=== PATIENT | male | born 1985 | race Caucasian/White ===

== ENCOUNTER 2017-05-31 15:32 | Emergency (ER) | payer SELFPAY ==
[2017-05-31 15:41] VITALS: BP 155/81
--- NOTE | 2017-05-31 18:55 | EKG REPORT ---
SEVERITY:- ABNORMAL ECG - SINUS RHYTHM LEFT POSTERIOR FASCICULAR BLOCK BORDERLINE INFERIOR Q WAVES : Confirmed by: Isreal Bell MD 31-May-2017 18:54:25
== END 2017-05-31 16:55 | disposition left against medical advice (07) ==
LOC: ER 15:32
DX: Z53.21 Procedure and treatment not carried out due to patient leaving prior to being seen by health care provider (principal)
CPT/HCPCS: 93005; 93010

== ENCOUNTER 2017-06-07 16:19 | Emergency (ER) | payer OTHER ==
[2017-06-07 16:31] VITALS: BP 150/81
[2017-06-07] MEDS ORDERED: KETOROLAC TROMETHAMINE INJ/PF 30 MG/1 ML SDV IV ONE (16:57)
[2017-06-07] MEDS ORDERED: CLINDAMYCIN 600 MG/D5W RTU 600 MG/50 ML RTUPB IV ONE (16:57)
[2017-06-07] MEDS ORDERED: HYDROMORPHONE HCL INJ/PF 2 MG/ML AMPULE IV ONE (16:57)
--- NOTE | 2017-06-07 17:00 | ER Document Report ---
ED Medical Screen (RME) - General Chief Complaint: Finger Injury Stated Complaint: RT FINGER LACERATION Time Seen by Provider: 06/07/17 16:57 Notes: The patient is a 32-year-old male who presents with swelling of his right 2nd PIP joint after he cut it with a knife 2 weeks ago. He was using duct tape and bacitracin since the incident. Unknown tetanus status. Now noticing pus coming from the joint and he cannot bend his finger. PE: Swelling and purulent drainage from right 2nd PIP joint from dorsal side. No redness or tenderness over the flexor aspect of the second finger. I have greeted and performed a rapid initial assessment of this patient. A comprehensive ED assessment and evaluation of the patient, analysis of test results and completion of the medical decision making process will be conducted by additional ED providers. TRAVEL OUTSIDE OF THE [place] IN LAST 30 DAYS: No - Related Data Allergies/Adverse Reactions: No Known Allergies Allergy (Verified 06/07/17 16:21) Past Medical History Pulmonary Medical History: Reports: Hx Asthma - Immunizations Hx Diphtheria, Pertussis, Tetanus Vaccination: Yes Physical Exam - Vital signs Vitals: Temp Pulse Resp BP Pulse Ox 99.0 F 91 18 150/81 H 99 06/07/17 16:29 06/07/17 16:29 06/07/17 16:29 06/07/17 16:29 06/07/17 16:29 Course - Vital Signs Vital signs: Temp Pulse Resp BP Pulse Ox 99.0 F 91 18 150/81 H 99 06/07/17 16:29 06/07/17 16:29 06/07/17 16:29 06/07/17 16:29 06/07/17 16:29
--- NOTE | 2017-06-07 18:03 | ER Document Report ---
ED Hand/Wrist Injury - General Chief Complaint: Finger Injury Stated Complaint: RT FINGER LACERATION Time Seen by Provider: 06/07/17 16:57 Mode of Arrival: Ambulatory Information source: Patient TRAVEL OUTSIDE OF THE [place] IN LAST 30 DAYS: No - HPI Patient complains to provider of: right index finger infection Notes: Patient is here with complaints of right index finger redness, swelling, pain. 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 He states that he accidentally lacerated his PIP of the right index finger about 2 weeks ago. States that he wrapped some black electrical tape around it and went about his business. States that yesterday the finger started to become swollen and painful and today the entire index finger is swollen and painful and he now has some redness and swelling extending up the dorsum of his hand. He denies any nausea, vomiting, diarrhea. He denies fever. He denies any numbness or tingling. He does have limited range of motion of the finger. No chest pain or shortness of breath. He denies any other complaints at this time. - Related Data Allergies/Adverse Reactions: No Known Allergies Allergy (Verified 06/07/17 16:21) Home Medications: no home meds. Past Medical History - Social History Smoking Status: Current Every Day Smoker Chew tobacco use (# tins/day): No Frequency of alcohol use: Rare Drug Abuse: None Family History: Reviewed & Not Pertinent Patient has suicidal ideation: No Patient has homicidal ideation: No Pulmonary Medical History: Reports: Hx Asthma Renal/ Medical History: Denies: Hx Peritoneal Dialysis - Immunizations Hx Diphtheria, Pertussis, Tetanus Vaccination: Yes Review of Systems - Review of Systems -: Yes All other systems reviewed and negative Physical Exam - Vital signs Vitals: Temp Pulse Resp BP Pulse Ox 99.0 F 91 18 150/81 H 99 06/07/17 16:29 06/07/17 16:29 06/07/17 16:29 06/07/17 16:29 06/07/17 16:29 - Notes Notes: GENERAL: alert, cooperative, nontoxic, no distress. HEAD: normocephalic, atraumatic EYES: conjunctiva pink without discharge, no external redness or swelling. EARS: no external swelling, no external redness NOSE: atraumatic, no external swelling MOUTH/THROAT: mucous membranes moist and pink, posterior pharynx without erythema, swelling, exudate. No trismus or drooling. NECK: soft, supple, full range of motion, no meningismus. CHEST: no distress, lungs clear and equal throughout. No wheezing, rales, rhonchi. CARDIAC: regular rate and rhythm, no murmur, normal capillary refill, normal pulses. No peripheral edema noted. ABDOMEN: Soft, nontender. BACK: full range of motion, no CVA tenderness. EXTREMITIES: Old laceration to the dorsal aspect of the right PIP joint. There is a small amount of drainage noted from this old site. Patient is now noted to have swelling, redness, tenderness to the right index finger and extending up the dorsum of the right hand. There is no redness past the wrist. He has normal cap refill and sensation distally. NEURO: alert and oriented x 3, no focal deficits, full range of motion of all extremities. PYSCH: appropriate mood, affect. Patient is cooperative. SKIN: pink, warm, dry, no rash. Course - Re-evaluation Re-evalutation: 06/07/17 18:01 Patient is here with complaints of laceration to the right index finger at the PIP joint on the dorsal aspect that happened 2 weeks ago. H put electrical tape around it and is not evaluated for this laceration. Yesterday developed some pain and redness as well as some swelling to this area. Today the redness swelling and pain has worsened and he now has some redness and swelling extending to the dorsal aspect of the hand. Patient has some drainage coming from the old laceration site. He is afebrile. The remainder of his vital signs are stable at this time. At this point with blood cultures as well as lab work are currently pending. X-ray of the right hand is also pending at this time. I have discussed the case with Dr. Benz who is the on-call orthopedist [facility]. He states that the patient can be discharged home on oral antibiotics and be seen in the office tomorrow morning for reevaluation. Patient will be given a dose of clindamycin IV in the emergency department. Will be discharged home on Bactrim according to Dr. Benz's preference. He will be instructed to soak his finger in warm soapy water. Follow-up with orthopedics tomorrow. Follow-up sooner for worsening pain, fever, redness or for any further concerns. Differentials would include abscess, cellulitis, tenosynovitis. 06/07/17 20:38 Patient is nontoxic appearing with stable vitals. Is here with complaints of right finger swelling and pain. He lacerated his finger 2 weeks ago and now has some redness and swelling to the finger. He states that he was able to express a large amount of purulent material from the PIP last evening at his house when he stuck something sharp into it. He is now noted to have some redness and swelling to the right index finger that extends up the dorsum of the hand. It does not go past the wrist. He is afebrile. He is nontoxic appearing his white count is minimally elevated at 11-1/2. CRP is slightly elevated at 25. ESR is normal. X-ray shows no acute abnormality. Discussed case with Dr. Benz, he recommends opening the area and sending the patient home on antibiotics and having him follow-up in the office tomorrow morning. I was able to open the old laceration site and was able to express a small amount of purulent material. Patient was given clindamycin in ED. He will be discharged home on Bactrim per Dr. Benz's request. I will give him a small supply of pain medication. We instructed to soak his finger in warm soapy water. Follow-up tomorrow morning with Dr. Benz. Follow-up sooner for worsening pain, fever, redness, numbness, tingling, weakness, any further concerns. The patient is noted to have elevated blood pressure during today's emergency department visit. The patient was informed of this finding. The patient was instructed that this may be related to pre-hypertension and requires further evaluation with a primary care provider. The patient has no hypertensive symptoms at this time. The patient's emergency department workup and current diagnosis were explained to the patient and or family. Follow-up instructions were provided. Medications if prescribed were discussed. Instructions for when to return to the emergency department including specific worrisome symptoms were discussed with the patient and/or family. - Vital Signs Vital signs: Temp Pulse Resp BP Pulse Ox 99.0 F 91 18 150/81 H 99 06/07/17 16:29 06/07/17 16:29 06/07/17 16:29 06/07/17 16:29 06/07/17 16:29 - Laboratory Result Diagrams: 06/07/17 17:47 06/07/17 17:47 Laboratory results interpreted by me: 06/07/17 06/07/17 17:47 17:47 WBC 11.5 H Absolute Neutrophils 8.9 H Glucose 124 H C-Reactive Protein 26.5 H - Diagnostic Test Radiology reviewed: Image reviewed, Reports reviewed - Soft tissue swelling, no acute abnormality of the bone no foreign body. Procedures - Incision and Drainage right index finger Type: Simple Anesthetic type: 1% Lidocaine I&D procedure: Shurclens applied, Sterile dressing applied Incision Method: Incision made with needle Amount/type of drainage: Small amount of purulent drainage Notes: 06/07/17 20:40 Old laceration site was opened up using forceps. Wound was probed. Discharge - Discharge Clinical Impression: Abscess of right index finger Cellulitis Qualifiers: Site of cellulitis: extremity Site of cellulitis of extremity: finger Laterality: right Qualified Code(s): L03.011 - Cellulitis of right finger Condition: Stable Disposition: HOME, SELF-CARE Instructions: Abscess ([facility]), Oral Narcotic Medication ([facility]), Post Incision and Drainage, Trimethoprim-Sulfa ([facility]) Additional Instructions: Take medication as prescribed. Soak finger in warm soapy water. Call Dr. Benz's office first thing in the morning to schedule a follow-up appointment with Dr. Benz tomorrow. Follow-up sooner for worsening pain, fever, numbness , tingling, weakness, any further concerns. Your blood pressure was elevated during today's visit. Have this rechecked with your doctor. The medication you were prescribed today may cause drowsiness. Do not drive or operate heavy machinery while taking this medication. Prescriptions: Hydrocodone/Acetaminophen [[place] 5-325 mg Tablet] 2 tab PO Q6H PRN #10 tab PRN Reason: Sulfamethoxazole/Trimethoprim [Bactrim Ds Tablet] 1 each PO BID #20 tablet Forms: Elevated Blood Pressure, Smoking Cessation Education, Return to Work Referrals: MIROSLAVA BENZ MD [ACTIVE STAFF] - Follow up as needed
[2017-06-07 18:07] LABS: ABSOLUTE EOSINOPHILS # (AUTO) 0.1 10^3/uL (0.0-0.6); ABSOLUTE LYMPHOCYTES (AUTO) 1.5 10^3/uL (0.5-4.7); ABSOLUTE NEUT (AUTO) 8.9 10^3/uL (1.7-8.2); BASOPHILS % (AUTO) 0.3 % (0-2); HEMATOCRIT 42.8 % (37.9-51.0); HEMOGLOBIN 14.8 g/dL (13.5-17.0); LYMPHOCYTES % (AUTO) 13.1 % (13-45); MEAN CORPUSCULAR HGB CONC 34.5 g/dL (32.0-36.0); MEAN CORPUSCULAR VOLUME 90 fl (80-97); MONOCYTES % (AUTO) 8.5 % (3-13); PLATELET COUNT 219 10^3/uL (150-450); RED BLOOD COUNT 4.76 10^6/uL (4.35-5.55); RED CELL DISTRIBUTION WIDTH 13.9 % (11.5-14.0); SEGMENTED NEUTROPHILS % (AUTO) 77.1 % (42-78); TOTAL CELLS COUNTED % (AUTO) 100 %; WHITE BLOOD COUNT 11.5 10^3/uL (4.0-10.5)
--- NOTE | 2017-06-07 18:12 | RADIOLOGY REPORT (SQ) ---
EXAM DESCRIPTION: FINGER RIGHT COMPLETED DATE/TIME: 06/07/2017 6:01 pm REASON FOR STUDY: 2nd finger injury and swelling COMPARISON: None. NUMBER OF VIEWS: Three views. TECHNIQUE: AP, lateral, and oblique images acquired of the right second finger. LIMITATIONS: None. FINDINGS: MINERALIZATION: Normal. BONES: No acute fracture or dislocation. No worrisome bone lesions. SOFT TISSUES: No soft tissue swelling. No foreign body. OTHER: No other significant finding. IMPRESSION: NO RADIOGRAPHIC EVIDENCE OF ACUTE INJURY. COMMENT: SITE OF TRAUMA/COMPLAINT MARKED/STAMP COMPLETED: No TECHNICAL DOCUMENTATION: JOB ID: [id number] [employer]- All Rights Reserved Reading location - IP/workstation name: [email or web address]
[2017-06-07 18:31] LABS: ALANINE AMINOTRANSFERASE 29 U/L (21-72); ALKALINE PHOSPHATASE 78 U/L (38-126); ANION GAP 13 (5-19); ASPARTATE AMINO TRANSFERASE 21 U/L (17-59); BILIRUBIN,DIRECT 0.3 mg/dL (0.0-0.4); BILIRUBIN,TOTAL 0.4 mg/dL (0.2-1.3); BLOOD UREA NITROGEN 14 mg/dL (7-20); C-REACTIVE PROTEIN 26.5 mg/L (<10.0); CALCIUM 8.7 mg/dL (8.4-10.2); CARBON DIOXIDE 28 mmol/L (22-30); CHLORIDE 103 mmol/L (98-107); GLUCOSE 124 mg/dL (75-110); POTASSIUM 3.6 mmol/L (3.6-5.0); TOTAL PROTEIN 6.7 g/dL (6.3-8.2)
[2017-06-07 18:45] LABS: ERYTHROCYTE SEDIMENTATION RATE 15 mm/hr (0-15)
[2017-06-07] MEDS ORDERED: HYDROCODONE/ACETAMINOPHEN 5-325 MG TABLET PO ONE (19:11)
[2017-06-07] MEDS ORDERED: LIDOCAINE 1% INJ-PF (10 MG/ML) 30 ML SDV INJ ONE (19:22)
== END 2017-06-07 20:52 | disposition home or self-care (01) ==
LOC: ER 16:19
DX: S61.210A Laceration without foreign body of right index finger without damage to nail, initial encounter (principal); L02.511 Cutaneous abscess of right hand; L03.011 Cellulitis of right finger; W26.8XXA Contact with other sharp object(s), not elsewhere classified, initial encounter; Y93.89 Activity, other specified; Y99.0 Civilian activity done for income or pay; F17.200 Nicotine dependence, unspecified, uncomplicated; J45.909 Unspecified asthma, uncomplicated; R03.0 Elevated blood-pressure reading, without diagnosis of hypertension
CPT/HCPCS: 99284; 96375; 96365; 36415; 87040; 85025; 85652; 86140; 80053; 73140; 26010; J3490; J1885; J1170

== ENCOUNTER 2017-10-31 08:26 | Emergency (ER) | payer SELFPAY ==
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
[2017-10-31] MEDS ORDERED: OXYCODONE-ACETAMINOPHEN 5-325 MG TABLET PO ONE (09:56)
[2017-10-31] MEDS ORDERED: ONDANSETRON 4 MG TAB.RAPDIS PO ONE (09:56)
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
[2017-10-31 11:32] VITALS: BP 145/89
== END 2017-10-31 11:33 | disposition home or self-care (01) ==
LOC: ER 08:26
DX: S00.411A Abrasion of right ear, initial encounter (principal); S00.03XA Contusion of scalp, initial encounter; M79.1 Myalgia; F17.200 Nicotine dependence, unspecified, uncomplicated; Y04.8XXA Assault by other bodily force, initial encounter; Y92.481 Parking lot as the place of occurrence of the external cause
CPT/HCPCS: 99284; 73502; 72110; 72070; 70450; 70486; 72125; S0119